=== PATIENT | male | born 1980 | race Hispanic/Latino ===

== ENCOUNTER 2021-09-30 23:57 | Emergency (ER) | payer SELFPAY ==
[~2021-09-30] VITALS: Ht 170.2 cm; Wt 114.8 kg
[2021-10-01 00:55] LABS: BASOPHILS % (AUTO) 0.6 % (0.0-5.0); EOSINOPHILS % (AUTO) 6.6 % (0.0-8.0); HEMATOCRIT 40.2 % (42-54); LYMPHOCYTES % (AUTO) 19.6 % (21.0-51.0); MEAN CORPUSCULAR HEMOGLOBIN 31.6 pg (27.0-33.0); MEAN CORPUSCULAR HGB CONC 33.1 g/dL (32.0-36.0); MEAN CORPUSCULAR VOLUME 95.5 fL (79-99); MONOCYTES % (AUTO) 7.5 % (3.0-13.0); NEUTROPHILS % (AUTO) 65.5 % (40.0-77.0); PLATELET COUNT (AUTO) 231 K/uL (130-400); RED BLOOD CELL COUNT(AUTO) 4.21 MIL/uL (4.50-6.20); RED CELL DISTRIBUTION WIDTH 13.3 % (11.0-15.5); WHITE BLOOD COUNT (AUTO) 6.6 K/uL (4.8-10.8)
[2021-10-01 01:03] LABS: CREATININE 1.1 mg/dL (0.5-1.5); POTASSIUM 3.6 mmol/L (3.5-5.1)
[2021-10-01 01:07] LABS: ALBUMIN 3.6 g/dL (3.5-5.0); BILIRUBIN,TOTAL 0.3 mg/dL (0.2-1.0); TOTAL PROTEIN, SERUM 7.8 g/dL (6.0-8.3)
[2021-10-01 01:12] LABS: B-TYPE NATRIURETIC PEPTIDE 37 pg/mL (0-100)
[2021-10-01] MEDS ORDERED: PRED10TA3 PO (01:57)
[2021-10-01] MEDS ORDERED: CEPH500B PO (01:57)
[2021-10-01] MEDS ORDERED: CEPHALEXIN 250 MG CAPSULE PO ONE (02:00)
[2021-10-01] MEDS ORDERED: DiphenhydrAMINE HCL 50 MG/ML VIAL IV ONE (02:00)
[2021-10-01] MEDS ORDERED: DEXAMETHASONE SOD PHOSPHATE 10MG/ML 1ML VIAL IVP ONE (02:00)
[2021-10-01 02:21] VITALS: BP 119/93
== END 2021-10-01 02:25 | disposition home or self-care (01) ==
LOC: EDH 23:57
DX: L40.9 Psoriasis, unspecified (principal); R60.0 Localized edema; Z79.52 Long term (current) use of systemic steroids; W11.XXXA Fall on and from ladder, initial encounter
CPT/HCPCS: 36415; 71045; 73630; 80053; 83880; 84484; 85025; 93005; 93970; 96374; 96375; 99285; J1100; J1200